=== PATIENT | female | born 1995 | race Caucasian/White ===

== ENCOUNTER 2019-10-23 09:38 | Emergency (ER) | payer MEDICAID, OTHER ==
[~2019-10-23] VITALS: Ht 165.1 cm; Wt 52.2 kg
[2019-10-23 10:34] LABS: Basophils # (auto) 0 uL; Basophils % (auto) 1.1 % (0.0-2.0); Eosinophils # (auto) 0 uL; Hematocrit 42.9 % (36.0-46.0); Hemoglobin 14.8 g/dL (12.2-16.2); Lymphocytes # (auto) 1.1 uL; Lymphocytes % (auto) 26.9 % (10.0-50.0); Mean Corpuscular Hemoglobin 32.9 pg (28.0-32.0); Mean Corpuscular Hgb Conc. 34.6 g/dL (32.0-36.0); Mean Corpuscular Volume 95.1 fL (80.0-100.0); Monocytes # (auto) 0.4 uL; Monocytes % (auto) 10.8 % (0.0-12.0); Neutrophils # (auto) 2.5 uL; Neutrophils % (auto) 60.2 % (37.0-80.0); Nucleated Red Blood Cells % 0.1 %; Platelet Count (auto) 280 10^3/uL (140-450); Red Blood Cells 4.51 10^6/uL (4.0-5.20); Red Cell Distribution Width 14.1 % (11.8-14.3); White Blood Cell 4.1 10^3/uL (4.4-10.8)
[2019-10-23 10:40] LABS: Urine Bacteria NONE SEEN /hpf (None Seen); Urine Blood TRACE /uL (Negative); Urine Hyaline Cast FEW /lpf (0 - 2); Urine Mucus FEW (None Seen); Urine Specific Gravity 1.026 (1.001-1.035); Urine WBC 1 /hpf (0 - 5)
[2019-10-23 13:03] VITALS: BP 125/69
== END 2019-10-23 15:27 | disposition left against medical advice (07) ==
LOC: ER 09:38
DX: O26.851 Spotting complicating pregnancy, first trimester (principal); Z53.29 Procedure and treatment not carried out because of patient's decision for other reasons; Z3A.01 Less than 8 weeks gestation of pregnancy
CPT/HCPCS: 36415; 76801; 81001; 81025; 84702; 85025

== ENCOUNTER 2019-10-24 09:55 | Inpatient (IN) | payer OTHER ==
[~2019-10-24] VITALS: Ht 165.1 cm; Wt 53.5 kg
[2019-10-24] MEDS ORDERED: SODIUM CHLORIDE 0.9% 1,000 ML IVB ONE (11:55)
[2019-10-24 12:38] LABS: Basophils # (auto) 0 uL; Eosinophils # (auto) 0 uL; Eosinophils % (auto) 0.9 % (0.0-7.0); Hematocrit 41.7 % (36.0-46.0); Hemoglobin 14.2 g/dL (12.2-16.2); Lymphocytes % (auto) 23.1 % (10.0-50.0); Mean Corpuscular Hemoglobin 32.5 pg (28.0-32.0); Mean Corpuscular Hgb Conc. 34.1 g/dL (32.0-36.0); Mean Corpuscular Volume 95.3 fL (80.0-100.0); Monocytes # (auto) 0.4 uL; Monocytes % (auto) 8.6 % (0.0-12.0); Neutrophils # (auto) 2.9 uL; Neutrophils % (auto) 66.4 % (37.0-80.0); Platelet Count (auto) 273 10^3/uL (140-450); Red Blood Cells 4.38 10^6/uL (4.0-5.20); Red Cell Distribution Width 13.8 % (11.8-14.3); White Blood Cell 4.3 10^3/uL (4.4-10.8)
[2019-10-24 12:48] LABS: Albumin 4.4 g/dL (3.4-5.0); Calcium 9.4 mg/dL (8.5-10.1); Magnesium 2.2 mg/dL (1.6-2.6); Potassium 3.9 mmol/L (3.5-5.1)
[2019-10-24 12:51] LABS: BUN/Creatinine Ratio 18.2; Bilirubin, Total 0.6 mg/dL (0.2-1.0); Total Protein 7.8 g/dL (6.4-8.2)
[2019-10-24 13:12] LABS: INR 1.05 (0.9-1.15); Partial Thromboplastin Time 24.8 sec (23.64-32.05)
[2019-10-24] MEDS: SODIUM CHLORIDE 0.9% 1,000 ML IV SCH ×2 (16:55→23:25)
[2019-10-24] MEDS ORDERED: MIDAZOLAM HCL 1MG/1ML-2 ML VIAL ONE (17:10)
[2019-10-24] MEDS ORDERED: fentaNYL CITRATE 100 MCG/2 ML VL ONE (17:10)
[2019-10-24] MEDS ORDERED: LACTATED RINGER'S 1,000 ML IV SCH (17:11)
[2019-10-24] MEDS ORDERED: ROCURONIUM 10MG/ML 10ML VIAL IV ONE (17:14)
[2019-10-24] MEDS ORDERED: ONDANSETRON HCL 4 MG/2 ML VIAL IV PRN (17:15)
[2019-10-24] MEDS ORDERED: SUCCINYLCHOLINE CHLORIDE 20 MG/ML 10ML VIAL IV ONE (17:16)
[2019-10-24] MEDS ORDERED: ceFAZolin 1GM/50ML 50 ML IV ONE (17:24)
[2019-10-24] MEDS ORDERED: ONDANSETRON HCL 4 MG/2 ML VIAL ONE (18:02)
[2019-10-24] MEDS ORDERED: NEOSTIGMINE 1 MG/ML INJ (10mg/10ML VIAL) ONE (18:02)
[2019-10-24] MEDS ORDERED: DexAMETHasone SOD PHOS 10MG/1ML VIAL INJ ONE (18:02)
[2019-10-24] MEDS ORDERED: GLYCOPYRROLATE 0.2 MG/ML 1ML VIAL ONE (18:03)
[2019-10-24] MEDS ORDERED: METOCLOPRAMIDE HCL 5MG/ml INJ 2ml VIAL ONE (18:03)
[2019-10-24] MEDS ORDERED: PROPOFOL 10 MG/ML 20 ML IV ONE (18:03)
[2019-10-24] MEDS ORDERED: HYDROmorphone HCL 2 MG/ML VL ONE (18:36)
[2019-10-24] MEDS: HYDROmorphone HCL 2 MG/ML VL IV PRN ×4 (18:37→19:07)
[2019-10-24] MEDS ORDERED: HYDROmorphone HCL 2 MG/ML VL IV ONE (18:45)
--- NOTE | 2019-10-24 19:40 | NUR ---
MS admit from OR SILVANO ALICIA admitted to [facility] after SBAR received from OR nurse. Patient oriented to JOLIE FINNEY [facility], primary RN, unit, room, bed, and unit policies regarding patient care and visiting hours. Patient weighed by bedscale and encouraged to call if they need something. All questions and concerns addressed, patient verbalized understanding. Bed in lowest locked position, call light within reach, side rails up x2. Will continue to monitor Q1hr and PRN.
[2019-10-24] MEDS: MORPHINE SULFATE 4 MG/ML SYR/VIAL IV PRN ×2 (19:54→23:49)
--- NOTE | 2019-10-24 20:35 | NUR ---
MD Called/paged Spoke with Dr. Baez regarding pain medicine and diet order. Spoke with MD in regards to patient requesting pain medicine for breakthrough pain, as patient only has morphine available, no new orders received at this time. Also verified if patient is to stay NPO throughout the night, per MD keep patient NPO for the night. Will continue care.
[2019-10-24] MEDS ORDERED: INFLUENZA QUAD 2019-2020 0.5ml SYRG IM ONE (21:00)
[2019-10-24] MEDS: ceFAZolin 1GM/50ML 50 ML IV SCH (21:35)
[2019-10-24 22:59] LABS: Basophils # (auto) 0 uL; Basophils % (auto) 0.2 % (0.0-2.0); Eosinophils # (auto) 0 uL; Hematocrit 38.7 % (36.0-46.0); Hemoglobin 13.1 g/dL (12.2-16.2); Lymphocytes # (auto) 0.4 uL; Lymphocytes % (auto) 2.2 % (10.0-50.0); Mean Corpuscular Hemoglobin 32.2 pg (28.0-32.0); Mean Corpuscular Hgb Conc. 33.8 g/dL (32.0-36.0); Mean Corpuscular Volume 95.4 fL (80.0-100.0); Monocytes # (auto) 0.3 uL; Monocytes % (auto) 1.9 % (0.0-12.0); Neutrophils # (auto) 15.1 uL; Neutrophils % (auto) 95.7 % (37.0-80.0); Platelet Count (auto) 243 10^3/uL (140-450); Red Blood Cells 4.06 10^6/uL (4.0-5.20); Red Cell Distribution Width 14.2 % (11.8-14.3); White Blood Cell 15.8 10^3/uL (4.4-10.8)
[2019-10-25 05:00] VITALS: BP 135/68
[2019-10-25] MEDS: ceFAZolin 1GM/50ML 50 ML IV SCH ×3 (06:14→22:11)
[2019-10-25] MEDS: MORPHINE SULFATE 4 MG/ML SYR/VIAL IV PRN (06:14)
[2019-10-25 06:29] LABS: Basophils # (auto) 0 uL; Basophils % (auto) 0.1 % (0.0-2.0); Eosinophils # (auto) 0 uL; Hematocrit 36.4 % (36.0-46.0); Hemoglobin 12.5 g/dL (12.2-16.2); Lymphocytes # (auto) 0.4 uL; Lymphocytes % (auto) 3.7 % (10.0-50.0); Mean Corpuscular Hemoglobin 32.5 pg (28.0-32.0); Mean Corpuscular Hgb Conc. 34.2 g/dL (32.0-36.0); Mean Corpuscular Volume 95.1 fL (80.0-100.0); Monocytes # (auto) 0.7 uL; Monocytes % (auto) 5.4 % (0.0-12.0); Neutrophils % (auto) 90.8 % (37.0-80.0); Platelet Count (auto) 231 10^3/uL (140-450); Red Blood Cells 3.83 10^6/uL (4.0-5.20); Red Cell Distribution Width 13.8 % (11.8-14.3); White Blood Cell 12.1 10^3/uL (4.4-10.8)
--- NOTE | 2019-10-25 07:30 | NUR ---
Opening Shift Note Assumed care of patient, awake and alert. No S/S of distress/SOB or pain. Instructed on POC and to call for assist PRN, will continue to monitor for changes Q1hr and PRN.
--- NOTE | 2019-10-25 08:11 | NUR ---
Dr. Baez in to see patient as primary physician.
[2019-10-25] MEDS ORDERED: BISACODYL 10 MG RECT SUPP PR PRN (08:30)
[2019-10-25] MEDS ORDERED: RHO (D) IMMUNE GLOBULIN 300 MCG INJ IM PRN (08:30)
[2019-10-25] MEDS ORDERED: DOCUSATE SOD 100 MG CAP PO PRN (08:30)
[2019-10-25 08:34] VITALS: BP 100/50
--- NOTE | 2019-10-25 09:13 | NUR ---
Vasquez catheter dc'd Order to discontinue vasquez catheter. Vasquez dc'd with clean technique following deflation of balloon. Patient tolerated well with no complaints of pain. Continue care.
[2019-10-25] MEDS: DOCUSATE CALCIUM 240 MG CAP PO SCH (09:40)
[2019-10-25] MEDS: HYDROcodone-ACET 10/325MG TAB PO PRN ×3 (10:08→19:54)
[2019-10-25] MEDS: SIMETHICONE 80 MG CHEWABLE TABLET PO SCH ×3 (12:00→22:11)
[2019-10-25 12:29] VITALS: BP 116/62
--- NOTE | 2019-10-25 14:19 | NUR ---
Patient states she has been ambulating. Will continue to monitor.
[2019-10-25 17:01] VITALS: BP 113/58
[2019-10-25] MEDS: SODIUM CHLORIDE 0.9% 1,000 ML IV SCH (20:45)
[2019-10-25 22:00] VITALS: BP 110/60
[2019-10-26] MEDS: HYDROcodone-ACET 10/325MG TAB PO PRN ×2 (02:20→10:31)
[2019-10-26] MEDS: SODIUM CHLORIDE 0.9% 1,000 ML IV SCH ×2 (02:31→09:29)
[2019-10-26 05:00] VITALS: BP 107/60
[2019-10-26] MEDS: ceFAZolin 1GM/50ML 50 ML IV SCH (05:47)
[2019-10-26] MEDS: SIMETHICONE 80 MG CHEWABLE TABLET PO SCH ×2 (05:48→12:20)
--- NOTE | 2019-10-26 07:20 | NUR ---
RECEIVED CALL FROM DR. BAEZ Received call from Dr. Baez. Updated Dr. Baez on patient status. Per Dr. Baez patient is to see her next Saturday at 09:30, patient is to remove the dressing, let water run over it and Dr. Baez will remove the elvin in a week, patient is able to shower but no bathing. Per Dr. Baez patient can be discharged today, after Dr. Baez rounds on her later today. Discussed plan of care with patient and day shift RN Melva, patient verbalized understanding.
[2019-10-26 09:00] VITALS: BP 93/58
[2019-10-26] MEDS: DOCUSATE CALCIUM 240 MG CAP PO SCH (09:29)
[2019-10-26 13:00] VITALS: BP 101/55
--- NOTE | 2019-10-26 16:11 | NUR ---
Discharge Went over paperwork with patient. Removed IV. Removed ID band. No new prescriptions. Questions answered. Patient left in private vehicle with all personal belongings.
== END 2019-10-26 16:10 | disposition home or self-care (01) | DRG 817 ==
LOC: ER 10:04 → WEST WING 10:05
PROVIDERS: ADMIT Obstetrics & Gynecology; ATTEND Obstetrics & Gynecology
PROC: 0UT50ZZ Resection of Right Fallopian Tube, Open Approach (ICD-10-PCS; 2019-10-24)
PROC: 0U910ZZ Drainage of Left Ovary, Open Approach (ICD-10-PCS; 2019-10-24)
PROC: 0DCW0ZZ Extirpation of Matter from Peritoneum, Open Approach (ICD-10-PCS; 2019-10-24)
PROC: 10T20ZZ Resection of Products of Conception, Ectopic, Open Approach (ICD-10-PCS; principal; 2019-10-24 17:30)
DX: O00.101 Right tubal pregnancy without intrauterine pregnancy (principal); K66.1 Hemoperitoneum; O08.89 Other complications following an ectopic and molar pregnancy; N83.202 Unspecified ovarian cyst, left side
CPT/HCPCS: 36415; 76801; 76817; 80053; 83735; 84702; 85025; 85610; 85730; 86850; 86900; 86901; 99291; G0378; J0330; J0690; J1100; J2250; J2405; J2704